=== PATIENT | female | born 1955 | race Caucasian/White ===

== ENCOUNTER 2018-10-29 09:45 | Day surgery (SDC) | payer OTHER ==
[2018-10-29 10:02] VITALS: BMI 33.6
[2018-10-29] MEDS ORDERED: Lactated Ringer's 500 ML IV ONE (10:05)
[2018-10-29] MEDS ORDERED: Propofol 10 mg/ml Inj (20 ML) ONE (11:57)
[2018-10-29 13:09] VITALS: RESP 18; TEMP 98.2; O2SAT 99
[2018-10-29 13:26] VITALS: BP 117/68; PULSE 74
== END 2018-10-29 14:32 | disposition home or self-care (01) ==
LOC: H.ENDO 09:45
PROVIDERS: ATTEND Internal Medicine Gastroenterology
DX: K57.30 Diverticulosis of large intestine without perforation or abscess without bleeding (principal); K64.0 First degree hemorrhoids; K59.00 Constipation, unspecified
CPT/HCPCS: 45378; J2001; J2704; J7120